=== PATIENT | female | born 1970 | race Caucasian/White ===

== ENCOUNTER → 2020-11-22 11:08 | Outpatient (BNVA) | payer OTHER, SELFPAY | PROVIDERS: Family Provider Obstetrics & Gynecology; PCP Family Medicine; Visit Provider Family Medicine | DX: Z13.6 Encounter for screening for cardiovascular disorders (principal); E04.1 Nontoxic single thyroid nodule; R06.01 Orthopnea | CPT/HCPCS: 80053; 80061; 83880; 84439; 84443; 85025 ==

== ENCOUNTER → 2020-11-24 11:08 | Outpatient (BNVA) | payer OTHER, SELFPAY | PROVIDERS: Family Provider Obstetrics & Gynecology; PCP Family Medicine; Visit Provider Family Medicine | DX: E66.01 Morbid (severe) obesity due to excess calories (principal); Z13.6 Encounter for screening for cardiovascular disorders; E04.1 Nontoxic single thyroid nodule; R06.01 Orthopnea | CPT/HCPCS: 82306 ==

== ENCOUNTER 2020-12-03 10:26 | Outpatient (CLI) | payer OTHER, SELFPAY ==
--- NOTE | 2020-12-03 11:00 | MM_ITS ---
WS: [id number] DIAGNOSTIC BILATERAL DIGITAL MAMMOGRAM WITH CAD Bilateral breast ultrasound, limited HISTORY: Bilateral breast masses. COMPARISON: None available. TECHNIQUE: Bilateral craniocaudad, mediolateral oblique, and mediolateral views are submitted. Spot c ompression bilateral CC and MLO projections. Computer aided detection utilized. Breast composition: There are scattered areas of fibroglandular density. Asymmetries are present in t he upper outer quadrant of each breast. These are slightly irregular in shape with mild distortion. V issac symmetric in appearance. These areas correspond to the palpable markers. There is an additional p alpable marker which does correspond to a lymph node which appears benign in the axillary tail. Ultra sound will be performed of all the palpable areas. Bilateral breast ultrasound, limited. RIGHT breast: 11:00, 3 cm from the nipple no abnormality is identified. At 10:00, 3 cm above the nipp le is a hypoechoic area with shadowing. This area spiculated measuring 1.5 x 1.1 x 1.3 cm. No increas ed vascularity. Benign lymph node RIGHT breast at 11:00. LEFT breast: Very hypoechoic mass in the LEFT breast at 1:00, 4 cm from the nipple. This hypoechoic a leslie measures 0 1.5 x 1.3 x 0.6 cm. There is no through-transmission. There is an additional hypoechoi c lobulated nodule at 1:00, 4 cm from the nipple measuring 0.8 x 0.7 x 0.5 cm. MM/[place] [id number] IMPRESSION: BI-RADS: 4-Suspicious Finding-Biopsy Should Be Considered FOLLOW UP: Biopsy Recommended 1. Ultrasound-guided biopsy recommended of slightly spiculated hypoechoic mass at 10:00, 3 cm from the nipple RIGHT breast. 2. Ultrasound-guided biopsy recommended of 2 LEFT breast mass at 1:00, 4 cm to the nipple. One of these masses is very hypoechoic and may be a cyst or disten ded duct. The second mass is solid. Notified Jessica Penn DO at 12/03/2020 1:15 PM. Message left on answering se rvice.
== END 2020-12-03 10:27 | disposition home or self-care (01) ==
LOC: RADSHAW 10:31
PROVIDERS: PCP Family Medicine; Visit Provider Family Medicine
DX: N63.11 Unspecified lump in the right breast, upper outer quadrant (principal); N63.21 Unspecified lump in the left breast, upper outer quadrant
CPT/HCPCS: 76641; 77066

== ENCOUNTER 2020-12-17 07:09 | Outpatient (CLI) | payer OTHER, SELFPAY ==
--- NOTE | 2020-12-17 07:15 | US_ITS ---
WS: [id number] THYROID ULTRASOUND (TI-RADS CRITERIA) History: Thyroid nodule follow-up. COMPARISON: 05/30/2011. Technique: Ultrasound examination of the thyroid and adjacent soft tissues is performed. FINDINGS: Right lobe: 6.4 cm x 2.9 cm x 3.1 cm. Volume: 29.8 cm3. Markedly enlarged RIGHT thyroid. Very heterogeneous appearance of the gland. There is a dominant nodu le centered in the mid gland. Lymph nodes: Small, normal. NODULE: 1 Size: 3.5 x 3.0 x 3.9 cm. Location: Mid RIGHT Composition: Solid/almost completely solid (2) Echogenicity: Hypoechoic (2) Shape: Not taller than wide (0) Margins: Smooth (0) Echogenic foci: None (0) ACR TI-RADS total points: 4 ACR TI-RADS risk category: TR4 Left lobe: 4.7 cm x 1.2 cm x 1.3 cm. Volume: 4.0 cm3. Heterogeneous gland. No discrete nodules. Lymph nodes: Small normal-appearing. Isthmus: 0.4 cm. US/US thyroid [id number] Impression: TR4 Recommendation:Fine needle aspiration recommended of the large nodule in the RI T thyroid. Nodule which has slightly increased since 2011.
== END 2020-12-17 07:10 | disposition home or self-care (01) ==
LOC: RAD 07:12
PROVIDERS: PCP Family Medicine; Visit Provider Family Medicine
DX: E04.1 Nontoxic single thyroid nodule (principal)
CPT/HCPCS: 76536

== ENCOUNTER 2020-12-24 12:58 | Outpatient (CLI) | payer OTHER, SELFPAY ==
--- NOTE | 2020-12-24 | US_ITS ---
WS: [id number] ULTRASOUND-GUIDED BILATERAL BREAST BIOPSY CLINICAL INFORMATION: spiculated hypoechoic mass at 10:00 COMPARISON: None. FINDINGS: The procedure including risks, benefits, and complications were discussed with the patient who agreed to proceed. Using sterile technique patient was prepped and draped in the usual sterile fashion. Aft er 1% lidocaine utilizing real-time ultrasound guidance 5 14-gauge cores were obtained of the RIGHT b reast lesion at the 10 o'clock position. Subsequently a titanium clip was placed in the biopsy cavity . This is considered lesion A. Next, the LEFT breast lesion was localized at the 1:00 position 4 cm from the nipple. Large cystic ar ea was aspirated and a small amount of fluid was sent for sampling. The solid component was then biop sied and 5 14-gauge cores were obtained. The marker was placed in the biopsy cavity. This is consider ed lesion B. Next, the LEFT breast hypoechoic, more superficial lesion lesion at the 1:00 position was biopsied. 5 14-gauge cores were obtained and biopsy clip was placed. This is considered lesion C. PATHOLOGY DEMONSTRATES A. Breast, right, spiculated mass, BI-RADS 5 , ultrasound-guided biopsy: -Invasive lobular carcinoma. - B. Breast, left, cyst, ultrasound-guided biopsy: -Benign breast tissue with chronic inflammation and cyst contents. -Negative for malignancy. C. Breast, left, solid lesion , biopsy: -Lymphohistiocytic process, consistent with duct ectasia and chronic inflammation. -Negative for malignancy. See separate pathology report for breast cancer prognostic profile US/[id number] IMPRESSION: 1. Uncomplicated ultrasound-guided bilateral breast biopsy. 2. The pathology demonstrates LESION A RIGHT BREAST: INVASIVE LOBULAR CARCINOMA LESION B LEFT BREAST WITH LARGE ASPIRATED CYST: Benign breast tissue chronic in flammation and cystic contents. Negative for malignancy. LESION C SOLID LESION LEFT BREAST: Lymphohistiocytic process with ductal ectasi a and chronic inflammation. No evidence of malignancy. RECOMMEND BREAST SURGERY CONSULTATION FOR INVASIVE LOBULAR CARCINOMA RIGHT TEENA ST BREAST MRI IS RECOMMENDED DUE TO RISK OF CONTRALATERAL AND MULTICENTRIC DISEASE WITH INVASIVE LOBULAR CARCINOMA BI-RADS: 6-Known Biopsy-Proven Malignancy FOLLOW UP: See Report
--- NOTE | 2020-12-24 13:00 | US_ITS ---
WS: [id number] ULTRASOUND-GUIDED BILATERAL BREAST BIOPSY CLINICAL INFORMATION: spiculated hypoechoic mass at 10:00 COMPARISON: None. FINDINGS: The procedure including risks, benefits, and complications were discussed with the patient who agreed to proceed. Using sterile technique patient was prepped and draped in the usual sterile fashion. Aft er 1% lidocaine utilizing real-time ultrasound guidance 5 14-gauge cores were obtained of the RIGHT b reast lesion at the 10 o'clock position. Subsequently a titanium clip was placed in the biopsy cavity . This is considered lesion A. Next, the LEFT breast lesion was localized at the 1:00 position 4 cm from the nipple. Large cystic ar ea was aspirated and a small amount of fluid was sent for sampling. The solid component was then biop sied and 5 14-gauge cores were obtained. The marker was placed in the biopsy cavity. This is consider ed lesion B. Next, the LEFT breast hypoechoic, more superficial lesion lesion at the 1:00 position was biopsied. 5 14-gauge cores were obtained and biopsy clip was placed. This is considered lesion C. PATHOLOGY DEMONSTRATES A. Breast, right, spiculated mass, BI-RADS 5 , ultrasound-guided biopsy: -Invasive lobular carcinoma. - B. Breast, left, cyst, ultrasound-guided biopsy: -Benign breast tissue with chronic inflammation and cyst contents. -Negative for malignancy. C. Breast, left, solid lesion , biopsy: -Lymphohistiocytic process, consistent with duct ectasia and chronic inflammation. -Negative for malignancy. See separate pathology report for breast cancer prognostic profile US/[id number] IMPRESSION: 1. Uncomplicated ultrasound-guided bilateral breast biopsy. 2. The pathology demonstrates LESION A RIGHT BREAST: INVASIVE LOBULAR CARCINOMA LESION B LEFT BREAST WITH LARGE ASPIRATED CYST: Benign breast tissue chronic in flammation and cystic contents. Negative for malignancy. LESION C SOLID LESION LEFT BREAST: Lymphohistiocytic process with ductal ectasi a and chronic inflammation. No evidence of malignancy. RECOMMEND BREAST SURGERY CONSULTATION FOR INVASIVE LOBULAR CARCINOMA RIGHT TEENA ST BREAST MRI IS RECOMMENDED DUE TO RISK OF CONTRALATERAL AND MULTICENTRIC DISEASE WITH INVASIVE LOBULAR CARCINOMA BI-RADS: 6-Known Biopsy-Proven Malignancy FOLLOW UP: See Report
--- NOTE | 2020-12-24 14:30 | US_ITS ---
WS: [id number] ULTRASOUND-GUIDED BILATERAL BREAST BIOPSY CLINICAL INFORMATION: spiculated hypoechoic mass at 10:00 COMPARISON: None. FINDINGS: The procedure including risks, benefits, and complications were discussed with the patient who agreed to proceed. Using sterile technique patient was prepped and draped in the usual sterile fashion. Aft er 1% lidocaine utilizing real-time ultrasound guidance 5 14-gauge cores were obtained of the RIGHT b reast lesion at the 10 o'clock position. Subsequently a titanium clip was placed in the biopsy cavity . This is considered lesion A. Next, the LEFT breast lesion was localized at the 1:00 position 4 cm from the nipple. Large cystic ar ea was aspirated and a small amount of fluid was sent for sampling. The solid component was then biop sied and 5 14-gauge cores were obtained. The marker was placed in the biopsy cavity. This is consider ed lesion B. Next, the LEFT breast hypoechoic, more superficial lesion lesion at the 1:00 position was biopsied. 5 14-gauge cores were obtained and biopsy clip was placed. This is considered lesion C. PATHOLOGY DEMONSTRATES A. Breast, right, spiculated mass, BI-RADS 5 , ultrasound-guided biopsy: -Invasive lobular carcinoma. - B. Breast, left, cyst, ultrasound-guided biopsy: -Benign breast tissue with chronic inflammation and cyst contents. -Negative for malignancy. C. Breast, left, solid lesion , biopsy: -Lymphohistiocytic process, consistent with duct ectasia and chronic inflammation. -Negative for malignancy. See separate pathology report for breast cancer prognostic profile US/[id number] IMPRESSION: 1. Uncomplicated ultrasound-guided bilateral breast biopsy. 2. The pathology demonstrates LESION A RIGHT BREAST: INVASIVE LOBULAR CARCINOMA LESION B LEFT BREAST WITH LARGE ASPIRATED CYST: Benign breast tissue chronic in flammation and cystic contents. Negative for malignancy. LESION C SOLID LESION LEFT BREAST: Lymphohistiocytic process with ductal ectasi a and chronic inflammation. No evidence of malignancy. RECOMMEND BREAST SURGERY CONSULTATION FOR INVASIVE LOBULAR CARCINOMA RIGHT TEENA ST BREAST MRI IS RECOMMENDED DUE TO RISK OF CONTRALATERAL AND MULTICENTRIC DISEASE WITH INVASIVE LOBULAR CARCINOMA BI-RADS: 6-Known Biopsy-Proven Malignancy FOLLOW UP: See Report
[2021-01-04 08:13] LABS: Miscellaneous Test See Scanned Lab Rpt
== END 2020-12-24 12:59 | disposition home or self-care (01) ==
LOC: RAD 13:02
PROVIDERS: PCP Family Medicine; Visit Provider Family Medicine
DX: N63.11 Unspecified lump in the right breast, upper outer quadrant; N63.21 Unspecified lump in the left breast, upper outer quadrant; C50.911 Malignant neoplasm of unspecified site of right female breast; N60.42 Mammary duct ectasia of left breast
CPT/HCPCS: 19000; 19083; 19084; 76942; 88305; 88361; 88367; 88374

== ENCOUNTER 2021-01-05 14:19 | Outpatient (CLI) | payer OTHER, SELFPAY ==
--- NOTE | 2021-01-05 18:01 | ONC CON_ITS ---
Dr. Hernandez New Patient Note Patient: Katalina Garcias Unit #: [id number]: [id number] Dicatated By: Robert Hernandez M.D.Date of Visit: Jan 05, 2021 Onc MED New Patient/Consult Referring Physician: Dr. URIEL PRICE D.O. History of Present Illness: Ms. Katalina Ferreira, is a 50-year-old female with a year long history of right breast mass and recently noted mass in her left breast for which she underwent mammogram on December 03, 2020 which showed at 10:00, 3 cm above the nipple there is hypoechoic area with shadowing this area is spiculated measuring 1.5 x 1.1 x 1.3 cm. No increased vascularity, benign lymph node right breast at 11:00. And left breast shows very hypoechoic mass in the left breast at 1 o'clock position, 4 cm from the nipple. This is appropriate. Mid 1.5 x 1.3 x 0.6 cm with no through transmission. There is additional hypoechoic lobulated nodule at 1 o'clock position, 4 cm from the nipple measuring 0.8 x 0.7 x 0.5 cm. Subsequently patient underwent ultrasound-guided biopsy of right breast spiculated mass and two left breast masses on December 24, 2020 final pathology report came back negative for malignancy in left breast masses whereas right breast mass shows invasive lobular carcinoma, ER/ND strongly positive, E-cadherin, partially positive. Patient denies any nipple discharge, denies any overlying skin changes, denies any axillary lymphadenopathy, denies any new bony pains, denies any family history of breast cancer, denies any hormone supplement except control pill during pregnancies. Patient still having menstrual periods,, denies smoking or alcohol use. Past Medical History: Ms. Garcias's medical history consists of history of Helicobacter pylori and thyroid nodule. Past Surgical History: Ms. Garcias's surgical/procedural history consists of breast biopsy, covid vaccine #2 moderna in 2020, and covid vaccine #1 moderna in 2020. Medications: Acetaminophen 2 Tablet (of 500 mg) Oral q 8 hours PRN, Levocetirizine Dihydrochloride 1 Tablet (of 5 mg) Oral daily, Omeprazole 1 Tablet (of 20 mg) Capsule Delayed Release Oral daily Allergies: Esomeprazole Magnesium and Pseudoephedrine HCl. Social History: Ms. Garcias is . Ms. Garcias no longer smokes. She drinks occasionally. Family History: There is no documented family history. Review Of Symptoms: Review of Systems is not available for this patient. Vital Signs: Performed on Jan 05, 2021 16:29: 2, 0, 51.29 (HIGH), 2.44 sq.m, 66 in, 98 %, 80 /min, 18 /min, 136/84 mm(hg), 97.9 F (LOW), and 317.8 lbs (HIGH). Performance Status: 0 - Fully active, able to carry on all predisease activities without restrictions. (ECOG) Physical Examination: ENMT - No mouth sores, no thrush, no jaundice, No axillary or cervical lymphadenopathy, fullness in right anterior neck consistent with thyroid mass, Respiratory - Lungs are clear to auscultation, Cardiovascular - Regular rate and rhythm of heart, Abdomen - Soft, bowel sounds present, Extremities - No visible edema. Lab/Imaging: Most recent lab results are not available for this patient. Impression: Invasive lobular carcinoma per ultrasound-guided biopsy right breast done on December 24, 2020, ER 90% positive, ND 100% positive HER-2/myra negative left breast biopsy x2 showed no evidence of malignancy Mammogram done on December 03, 2020 showed 1.5 x 1.1 x 1.3 cm mass in the right breast at 10 o'clock position , 3 cm from the nipple, Plan: Discussed with patient regarding her disease status and further Work-up and treatment options, case was also discussed with pathology,, patient is considering breast preservation, patient was advised that invasive lobular carcinoma histology tend to be multicentric and often bilateral, so we would recommend MRI scan of the breast if it shows no additional abnormalities then lumpectomy with sentinel lymph node biopsy can be considered followed by radiation therapy and based on her prognostic profiling, chemotherapy followed by hormonal therapy or hormone therapy alone for 5 years may be considered. Patient is considering bilateral mastectomy with reconstruction if MRI scan of the breast shows abnormalities requiring biopsies. As far as thyroid mass is concerned, patient is scheduled for thyroid biopsy on February 04, 2021 At this point, we will refer her to breast cancer clinic at [facility] for evaluation and MRI scan of the breast, patient return to clinic 1 week after her visit to [facility] for further discussion. Signed By: Robert Hernandez M.D. <<Signature on File>>
== END 2021-01-05 14:20 | disposition home or self-care (01) ==
LOC: ONCMED 14:28
PROVIDERS: PCP Family Medicine; Visit Provider Internal Medicine Hematology & Oncology
DX: C50.411 Malignant neoplasm of upper-outer quadrant of right female breast (principal); Z17.0 Estrogen receptor positive status [ER+]
CPT/HCPCS: 99205

== ENCOUNTER 2021-02-04 08:56 | Outpatient (CLI) | payer OTHER, SELFPAY ==
--- NOTE | 2021-02-04 09:00 | US_ITS ---
WS: [id number] ULTRASOUND GUIDED BIOPSY RIGHT THYROID HISTORY: large nodule in the RIGHT thyroid. Procedure, risks, and complications are explained to the patient. Consent was obtained. Skin is clean sed with ChloraPrep and anesthetized with 1% buffered lidocaine. Large thyroid in the RIGHT gland is targeted for biopsy. Under sterile conditions this nodule is biop sied with 25-gauge needles. 4 fine-needle aspirations were performed. No complications were encounter ed. Cytopathology tech was present to perform the slides. Patient will be observed post procedure for at least 15 minutes for bleeding. US/US guide [id number] IMPRESSION: Uncomplicated RIGHT thyroid biopsy. Final pathology results pending.
== END 2021-02-04 08:57 | disposition home or self-care (01) ==
LOC: RAD 08:58
PROVIDERS: PCP Family Medicine; Visit Provider Family Medicine
DX: E04.1 Nontoxic single thyroid nodule (principal)
CPT/HCPCS: 10005; 88173; 88305

== ENCOUNTER → 2021-03-14 16:00 | Outpatient (BNVA) | payer OTHER, SELFPAY | PROVIDERS: PCP Family Medicine; Visit Provider Family Medicine | DX: Z01.812 Encounter for preprocedural laboratory examination (principal); Z20.822 Contact with and (suspected) exposure to COVID-19 | CPT/HCPCS: 87635 ==

== ENCOUNTER 2021-05-16 08:15 | Outpatient (CLI) | payer OTHER, SELFPAY ==
--- NOTE | 2021-05-16 10:19 | ONC FU_ITS ---
Dr. Hernandez follow up note Patient: Katalina Garcias Unit #: [id number]: [id number] Dicatated By: Robert Hernandez M.D.Date of Visit:May 16, 2021 Onc Med Follow-up/Prog Note History of Present Illness: Ms. Katalina Ferreira, is a 50-year-old female with a year long history of right breast mass and recently noted mass in her left breast for which she underwent mammogram on December 03, 2020 which showed at 10:00, 3 cm above the nipple there is hypoechoic area with shadowing this area is spiculated measuring 1.5 x 1.1 x 1.3 cm. No increased vascularity, benign lymph node right breast at 11:00. And left breast shows very hypoechoic mass in the left breast at 1 o'clock position, 4 cm from the nipple. This is appropriate. Mid 1.5 x 1.3 x 0.6 cm with no through transmission. There is additional hypoechoic lobulated nodule at 1 o'clock position, 4 cm from the nipple measuring 0.8 x 0.7 x 0.5 cm. Subsequently patient underwent ultrasound-guided biopsy of right breast spiculated mass and two left breast masses on December 24, 2020 final pathology report came back negative for malignancy in left breast masses whereas right breast mass shows invasive lobular carcinoma, ER/TN strongly positive, E-cadherin, partially positive. Patient denies any nipple discharge, denies any overlying skin changes, denies any axillary lymphadenopathy, denies any new bony pains, denies any family history of breast cancer, denies any hormone supplement except control pill during pregnancies. Patient still having menstrual periods,, denies smoking or alcohol use. Underwent MRI scan of the breast done on February 07, 2021 which showed 3.3 cm spiculated mass in the upper outer quadrant of right breast, site of invasive lobular carcinoma. No evidence of multifocal malignancy in the right breast. 4 cm area of clumped non-mass enhancement in the upper outer left breast is at low suspicion for malignancy could be chronic inflammation for which Underwent left upper outer quadrant of breast biopsy on February 18, 2021 at [place] which shows no evidence of malignancy or atypia Underwent right lumpectomy with sentinel lymph node on March 17, 2021 at [place], which showed multifocal invasive lobular carcinoma, largest contiguous microscopic focus was 21 mm, T2, 0 out of 2 lymph nodes shows metastatic disease, N0. Patient was seen by medical oncologist at [place] and was recommended to start tamoxifen for 5 years. Came for follow-up, denies any specific complaints, no fever chills, no nausea or vomiting, no diarrhea or constipation, no melena or hematochezia, no new bony pains, tolerated right lumpectomy with sentinel lymph node biopsy well. Patient also underwent left breast biopsy for abnormality seen on MRI scan of the breast and that came back negative for malignancy. Patient is here to discuss about adjuvant hormonal therapy with tamoxifen, as patient still having menses but considering prophylactic bilateral oophorectomy/hysterectomy. Medications: Acetaminophen 2 Tablet (of 500 mg) Oral q 8 hours PRN, Levocetirizine Dihydrochloride 1 Tablet (of 5 mg) Oral daily, Omeprazole 1 Tablet (of 20 mg) Capsule Delayed Release Oral daily Allergies: Esomeprazole Magnesium and Pseudoephedrine HCl. Review of Systems: Review of Systems is not available for this patient. Vital Signs: Performed on May 16, 2021 08:27 Height - 66.00 in Weight - 316.6 lbs (LOW) BSA - 2.43 sq.m BMI - 51.10 (HIGH) Temperature - 97.4 F (LOW) Pulse - 85 /min Respiration - 18 /min BP - 165/93 mm(hg) (HIGH) O2 Sat - 98 % Pain - 0 Fatigue - 2 Performance Status: 0 - Fully active, able to carry on all predisease activities without restrictions. (ECOG) Physical Examination: Respiratory - Lungs are clear to auscultation, Cardiovascular - Regular rate and rhythm of heart, Gastrointestinal - Soft, bowel sounds present, Extremities - No visible edema. Lab/Imaging: Most recent lab results are not available for this patient. Impression: Invasive lobular carcinoma per ultrasound-guided biopsy right breast done on December 24, 2020, ER 90% positive, TN 100% positive HER-2/myra negative, Underwent right lumpectomy with sentinel lymph node on March 17, 2021 at [place], which showed multifocal invasive lobular carcinoma, largest contiguous microscopic focus was 21 mm, T2, 0 out of 2 lymph nodes shows metastatic disease, N0. Started on tamoxifen 20 mg p.o. daily on May 16, 2021 for 5 years Underwent MRI scan of the breast done on February 07, 2021 which showed 3.3 cm spiculated mass in the upper outer quadrant of right breast, site of invasive lobular carcinoma. No evidence of multifocal malignancy in the right breast. 4 cm area of clumped non-mass enhancement in the upper outer left breast is at low suspicion for malignancy could be chronic inflammation for which Underwent left upper outer quadrant of breast biopsy on February 18, 2021 at [place] which shows no evidence of malignancy or atypia left breast biopsy x2 showed no evidence of malignancy Mammogram done on December 03, 2020 showed 1.5 x 1.1 x 1.3 cm mass in the right breast at 10 o'clock position , 3 cm from the nipple, Plan: Discussed with patient regarding her disease status and treatment options, patient has undergone extensive discussion with medical oncologist at [place] and she was offered tamoxifen 20 mg p.o. daily for 5 years, we will give her prescription for that, all the side effect, possible benefits including but not limited, hot flashes, mood swings, fluid retention, weight gain, increased risk of endometrial carcinoma/risk of thromboembolic phenomena. patient is already aware of the side effects and agreed for the treatment, will give a prescription for tamoxifen 20 mg p.o. daily. Patient is also considering prophylactic bilateral oophorectomy/hysterectomy, for which we will refer her to local [facility] for evaluation. We will also refer her to radiation oncology for postlumpectomy radiation therapy. She will return to clinic in 1 month with CBC CMP Signed By: Robert Henrandez M.D. <<Signature on File>>
== END 2021-05-16 08:16 | disposition home or self-care (01) ==
PROVIDERS: PCP Family Medicine; Visit Provider Internal Medicine Hematology & Oncology
DX: C50.911 Malignant neoplasm of unspecified site of right female breast (principal); C50.912 Malignant neoplasm of unspecified site of left female breast; Z79.899 Other long term (current) drug therapy
CPT/HCPCS: 99214

== ENCOUNTER 2021-05-24 07:06 | Outpatient (RCR) | payer OTHER, SELFPAY ==
--- NOTE | 2021-05-23 14:53 | N.ONRAD NP_ITS ---
Radiation Oncology Consultation Patient Name: Katalina Garcias Date of : 1970 Date of Service: 05/23/2021 Attending Physician: Garth Jennings M.D. Katalina Garcias was seen in consultation this afternoon at the request of Ron Hernandez M.D. for consideration of adjuvant breast radiotherapy for the management of a recently diagnosed breast cancer. She was evaluated by her primary care physician for a palpable left breast mass. A diagnostic mammogram (images were independently visualized in synapse) ordered on December revealed bilateral, irregularly shaped asymmetries in the upper outer quadrant of the breasts. Ultrasonography demonstrated a 1.5 cm x 1.1 cm x 1.3 cm spiculated lesion at the 10 o'clock position, 3 cm from the nipple within the right breast, a hypoechoic mass measuring 1.5 cm x 1.3 cm x 0.6 cm at the 1 o'clock position, 4 cm from the nipple and a 0.8 cm x 0.7 cm x 0.5 cm lobulated nodule at the 1 o'clock position, 4 cm from the nipple within the left breast. An ultrasound-guided breast biopsy completed on December 24, 2020 diagnosed an invasive lobular carcinoma from the right biopsy specimen without malignancy identified within the left breast biopsies. The breast cancer profile confirmed estrogen receptor positivity (99%) and progesterone receptor positivity (99%), but negative for HER-2 (ratio 1.4). The Ki???67 was 5%. The patient requested treatment at [facility] in [place], [place]. An MRI of the breasts ordered on February 07, 2021 demonstrated the biopsy-proven malignancy within the upper-outer quadrant of the right breast and a 3 cm x 4 cm x 1.5 cm non-enhancing mass in the upper-outer quadrant of the left breast. An MRI guided core biopsy performed on February 18, 2021 revealed fat necrosis with chronic inflammation without evidence of atypia or malignancy. Beka Fisher M.D. performed a right needle localized partial mastectomy with sentinel lymph node biopsy on March 17, 2021. The pathology report described a multifocal, grade 2, invasive, lobular carcinoma measuring 2.1 cm with a positive inferior surgical margin. A total of two lymph nodes were harvested without harboring metastatic disease. The Oncotype DX Breast Recurrence Score was 14. Tamoxifen has been prescribed. The patient was evaluated for adjuvant right breast radiotherapy. I discussed the patient's AJCC pathological stage IA (T2N0) specific to her breast cancer diagnosis and The National Comprehensive Cancer Network Guidelines for adjuvant radiotherapy. I also reviewed the classic study by NSABP trial comparing mastectomy, lumpectomy, and lumpectomy with radiotherapy and the Early Breast Cancer Trialist Collaborative Group meta-analysis. She is aware that the addition of radiotherapy to lumpectomy provides improvement in local control and overall survival. I will order genetic testing in consideration of the patient???s lobular carcinoma diagnosis and family history of gastric cancer. I anticipate a 3 week course of hypofractionated radiotherapy sequential to a surgical bed boost as per DOUGLAS Guidelines. A computed tomographic radiotherapy planning scan in the treatment position will be acquired to identify the clinical target volumes. The potential toxicities of breast radiotherapy were reviewed. The patient has verbalized understanding would like to proceed as recommended. The patient's medical treatment plan was discussed with Ron Hernandez M.D. Signed by: Dr. Garth Jennings 05/23/2021 2:51:52 PM
[2021-05-23 15:58] LABS: HCG, Serum Qual Negative (Negative)
--- NOTE | 2021-05-24 | CT_ITS ---
Radiation Therapy Planning CT images; total exam DLP: 1135.43 mGy-cm MTDD
== END 2021-05-30 23:59 | disposition home or self-care (01) ==
LOC: ONCMED 07:06
PROVIDERS: PCP Family Medicine; Visit Provider Radiology Radiation Oncology
DX: Z51.0 Encounter for antineoplastic radiation therapy (principal); C50.411 Malignant neoplasm of upper-outer quadrant of right female breast; Z17.0 Estrogen receptor positive status [ER+]; Z79.899 Other long term (current) drug therapy
CPT/HCPCS: 36415; 77280; 77295; 77300; 77332; 77334; 77470; 84703; 99205

== ENCOUNTER 2021-06-30 06:45 | Outpatient (RCR) | payer OTHER, SELFPAY ==
--- NOTE | 2021-06-02 | CT_ITS ---
Radiation Therapy Planning CT images; total exam DLP: 1152.33 mGy-cm MTDD
[2021-06-13 09:24] LABS: Basophils % 0.5 %; Eosinophils # 0.2 10^3/uL (0.0-0.8); Eosinophils % 2.9 %; Hematocrit 39.7 % (37.0-47.0); Hemoglobin 12.5 g/dL (11.5-15.3); Lymphocytes # 1.7 10^3/uL (0.8-4.8); Lymphocytes % 22.1 %; Mean Corpuscular HGB Conc 31.5 g/dL (30.0-36.0); Mean Corpuscular Hemoglobin 26.8 pg (28.0-34.0); Mean Platelet Volume 9.4 fL (7.4-10.4); Monocytes # 0.5 10^3/uL (0.2-0.9); Monocytes % 6.9 %; Neutrophils # 5.27 10^3/uL (1.8-7.7); Nucleated Red Blood Cells % 0 %; Platelet Count 243 10^3/cmm (130-400); Red Blood Count 4.67 10^6/uL (4.1-5.3); Red Cell Distribution Width 14.1 % (12.1-15.1); White Blood Count 7.9 10^3/uL (4.0-10.0)
[2021-06-13 09:38] LABS: Alanine Aminotransferase 7 U/L (0-33); Albumin Level 3.7 g/dL (3.5-5.2); Alkaline Phosphatase 113 IU/L (35-105); Anion Gap 13.2 (5-19); Aspartate Amino Transferase 13 U/L (0-32); Blood Urea Nitrogen 13 mg/dL (6-20); Calcium 8.2 mg/dL (8.5-10.5); Carbon Dioxide 25 mmol/L (22-29); Chloride 105 mmol/L (98-107); Globulin 2.9 g/dL (1.3-4.6); Glomerular Filtration Rate 76.6 mL/min (90-130); Glucose 107 mg/dL (65-115); Osmolality Calculated 289 mOsm/kg (285-295); Potassium 4.2 mmol/L (3.5-5.1); Sodium 139 mmol/L (136-145); Total Bilirubin 0.2 mg/dL (0.15-1.2); Total Protein 6.6 g/dL (6.6-8.7)
--- NOTE | 2021-06-13 09:40 | ONCRAD TMN_ITS ---
Radiation Oncology Weekly Treatment Management Patient: Dieter Greenwood MR#: [id number] : 1970> Attending Physician: Dr. Tray Stockton Date of Service: 06/13/2021 Referring Physician(s) : Robert Hernandez M.D. Diagnosis: C50.411 - Malignant neoplasm of upper-outer quadrant of right female breast, Diagnosed 12/24/2020 (Active) Stage IA, T2, pN0, M0, G2, HER2 Neg, ER Pos, [place] Po Radiotherapy to date: Course: Breast 2021, Treatment Site: Breast Ca, Ref. ID: [id number], Energy: 15X/6X, Dose/Fx (cGy): 266.7, #Fx: 5 / 15, Dose Correction (cGy): 0, Total Dose (cGy): 1,333.3, Start Date: 06/07/2021, End Date: 06/13/2021, Elapsed Days: 6 Reason for visit: The patient is being seen today as part of their regularly scheduled weekly on treatment visits to assess for acute toxicities from radiotherapy. Review of Systems: Performance status is stable. She has mild twinges of discomfort in the breast. No other complaints at all. Vital Signs: Performed on 06/13/2021 8:20 AM BMI - 51.424 kg/m2 (high), Height - 66 in, Weight - 318.6 lbs, Temperature - 97.3 f, Pulse - 82 /min, Respiration - 20 /min, O2 Sat - 99 %, Pain - 2, Fatigue - 4 and BP - 145/ 84 mm(hg)(high/). Physical Exam: Alert, oriented, no distress. No cervical supraclavicular or axillary lymphadenopathy. Lungs clear to auscultation. The breast is essentially normal in appearance. There is no erythema or edema. The lumpectomy incision is well-healed. There is no redness, tenderness, or induration in the tumor bed area. Imaging: Radiation therapy imaging related to accurate target localization (i.e. KV, MV and CBCT) was reviewed. Appropriate changes, if any, were made to ensure treatment accuracy. Plan: Continue hypofractionated radiation per plan. Signed by: Dr. Tray Stockton 06/13/2021 9:39:01 AM
--- NOTE | 2021-06-13 15:12 | ONC FU_ITS ---
Trisha Koenig Progress Note Patient: Katalina Garcias Unit #: [id number]: 1970 Dicatated By: Trisha Koenig N.P.Date of Visit:Jun 13, 2021 Onc MED Follow-up/Prog Note Chief Complaint: Breast cancer History of Present Illness: Ms. Katalina Ferreira, is a 50-year-old female with a year long history of right breast mass and recently noted mass in her left breast for which she underwent mammogram on December 03, 2020 which showed at 10:00, 3 cm above the nipple there is hypoechoic area with shadowing this area is spiculated measuring 1.5 x 1.1 x 1.3 cm. No increased vascularity, benign lymph node right breast at 11:00. And left breast shows very hypoechoic mass in the left breast at 1 o'clock position, 4 cm from the nipple. This is appropriate. Mid 1.5 x 1.3 x 0.6 cm with no through transmission. There is additional hypoechoic lobulated nodule at 1 o'clock position, 4 cm from the nipple measuring 0.8 x 0.7 x 0.5 cm. Subsequently patient underwent ultrasound-guided biopsy of right breast spiculated mass and two left breast masses on December 24, 2020 final pathology report came back negative for malignancy in left breast masses whereas right breast mass shows invasive lobular carcinoma, ER/CT strongly positive, E-cadherin, partially positive. Patient denies any nipple discharge, denies any overlying skin changes, denies any axillary lymphadenopathy, denies any new bony pains, denies any family history of breast cancer, denies any hormone supplement except control pill during pregnancies. Patient still having menstrual periods,, denies smoking or alcohol use. Underwent MRI scan of the breast done on February 07, 2021 which showed 3.3 cm spiculated mass in the upper outer quadrant of right breast, site of invasive lobular carcinoma. No evidence of multifocal malignancy in the right breast. 4 cm area of clumped non-mass enhancement in the upper outer left breast is at low suspicion for malignancy could be chronic inflammation for which Underwent left upper outer quadrant of breast biopsy on February 18, 2021 at [facility] which shows no evidence of malignancy or atypia Underwent right lumpectomy with sentinel lymph node on March 17, 2021 at [facility], which showed multifocal invasive lobular carcinoma, largest contiguous microscopic focus was 21 mm, T2, 0 out of 2 lymph nodes shows metastatic disease, N0. Patient was seen by medical oncologist at [facility] and was recommended to start tamoxifen for 5 years. Patient presents today for for. States she is feeling pretty good. She states her appetite is good. She denies fever, chills, night sweats. She is having some hot flashes since starting tamoxifen but they are tolerable. She denies sinus drainage or sore throat. No shortness of breath, cough, chest pain. No GI or problems. No joint or muscle pain. No headaches or dizziness. She is scheduled to see a gift shop assistant in [place] for possible hysterectomy and bilateral salpingo-oophorectomy. She is tolerating tamoxifen well. Review Of Symptoms: See above. Past Medical History: History of Helicobacter pylori Thyroid nodule Past Surgical History: Breast biopsy Covid vaccine #2 moderna in 2020 Covid vaccine #1 moderna in 2020 Allergies: Esomeprazole Magnesium and Pseudoephedrine HCl. Medications: Acetaminophen 2 Tablet (of 500 mg) Oral q 8 hours PRN Daily Vitamins 1 Tablet Oral daily Ibuprofen Tablet Oral PRN Levocetirizine Dihydrochloride 1 Tablet (of 5 mg) Oral daily Omeprazole 1 Tablet (of 20 mg) Capsule Delayed Release Oral daily Tamoxifen Citrate 1 Tablet (of 20 mg) Oral daily Family History: There is no documented family history. Social History: Ms. Garcias is . Ms. Garcias no longer smokes. She drinks occasionally. Physical Examination: Performed on Jun 13, 2021 11:19: Height - 66.00 in, Weight - 318.0 lbs (LOW), BSA - 2.44 sq.m, BMI - 51.33 (HIGH), Temperature - 97.7 F (LOW), Pulse - 77 /min, Respiration - 18 /min, BP - 140/86 mm(hg), O2 Sat - 99 %, Pain - 2, Fatigue - 4, Performed on Jun 13, 2021 08:20: Height - 66 in, Weight - 318.6 lbs, Temperature - 97.3 F, Pulse - 82 /min, Respiration - 20 /min, BP - 145/84 mm(hg) (HIGH), O2 Sat - 99 %, Pain - 2, Fatigue - 4, and Performed on Jun 13, 2021 08:20: BMI - 51.424 kg/m2 (HIGH). Performance Status: 0 - Fully active, able to carry on all predisease activities without restrictions. (ECOG) Constitutional Alert, cooperative, oriented. Mood and affect appropriate. Appears close to chronological age. Well nourished. Well developed. Head Normocephalic; no scars. Eyes Conjunctivae and sclerae are clear and without icterus. Pupils are reactive and equal. Respiratory Lungs are clear to auscultation without rhonchi or wheezing. Cardiovascular Regular rate and rhythm of heart without murmurs, gallops or rubs. Abdomen Non-tender, non-distended, no masses, ascites or hepatosplenomegaly. Good bowel sounds. No guarding or rebound tenderness. Extremities No visible deformities, no cyanosis, clubbing or edema. Pulses 3+ and equal bilaterally. Musculoskeletal No tenderness or swelling, normal range of motion without obvious weakness. Psychiatric Alert and oriented times three. Coherent speech. Verbalizes understanding of our discussions today. Laboratory: Test performed on Jun 13, 2021 09:01 Sodium 139 mmol/L Potassium 4.2 mmol/L Chloride 105 mmol/L CO2 25 mmol/L Anion Gap 13.2 BUN 13 mg/dL Creatinine 0.8 mg/dL Cr Clearance (Est) 195.8300 mL/min eGFR 76.6 mL/min Glucose 107 mg/dL Osmolality - Calculated 289 mOsm/kg Calcium 8.2 mg/dL Protein, Total 6.6 g/dL Albumin 3.7 g/dL Globulin 2.9 g/dL Bilirubin, Total 0.2 mg/dL ALT (SGPT) 7 U/L AST (SGOT) 13 U/L Alkaline Phosphatase 113 IU/L WBC 7.9 10 3/uL RBC 4.67 10 6/uL HGB 12.5 g/dL HCT 39.7 % MCV 85.0 fl MCH 26.8 pg MCHC 31.5 g/dL RDW 14.1 % Platelet Count 243 10 3/cmm MPV 9.4 fL Neutrophils 5.27 10 3/uL Lymphocytes 1.7 10 3/uL Monocytes 0.5 10 3/uL Eosinophils 0.2 10 3/uL Basophils 0.0 10 3/uL Neutrophil % 67.0 % Lymphocyte % 22.1 % Monocyte % 6.9 % Eosinophil % 2.9 % Basophils % 0.5 % NRBC % 0 % Impression: Invasive lobular carcinoma per ultrasound-guided biopsy right breast done on December 24, 2020, ER 90% positive, CT 100% positive HER-2/myra negative left breast biopsy x2 showed no evidence of malignancy Mammogram done on December 03, 2020 showed 1.5 x 1.1 x 1.3 cm mass in the right breast at 10 o'clock position , 3 cm from the nipple, Plan: Patient presents today for follow-up. She is tolerating tamoxifen 20 mg well. She is considering hysterectomy and bilateral salpingo-oophorectomy. She has an appointment in [place]. She had questions about treatment for menopausal breast cancer. Information and handouts were provided about anastrozole which would be a medication that we would consider if she reached a menopausal state. She she is currently receiving radiation treatment and has approximately 15 treatments left. She will follow-up with surgery concerning hysterectomy and bilateral salpingo-oophorectomy once radiation treatment has been completed. Patient to follow-up with CBC and CMP in 3 months or sooner if indicated. Signed By: Trisha Koenig N.My. <<Signature on File>>
--- NOTE | 2021-06-20 08:33 | ONCRAD TMN_ITS ---
Radiation Oncology Treatment Management Note Patient Name: Katalina Garcias Date of : 1970 Date of Service: 06/20/2021 Attending Physician: Garth Jennings M.D. Laxmi Garcias is a 50 year- old white female recently diagnosed with a pathological IA (T2N0) invasive, lobular carcinoma of the upper-outer quadrant of the right breast. She was evaluated by her primary care physician for a palpable left breast mass. A diagnostic mammogram ordered on December 03, 2020 revealed bilateral, irregularly shaped asymmetries in the upper-outer quadrant of the breasts. Ultrasonography demonstrated a 1.5 cm x 1.1 cm x 1.3 cm spiculated lesion at the 10 o'clock position, 3 cm from the nipple within the right breast, a hypoechoic mass measuring 1.5 cm x 1.3 cm x 0.6 cm at the 1 o'clock position, 4 cm from the nipple and a 0.8 cm x 0.7 cm x 0.5 cm lobulated nodule at the 1 o'clock position, 4 cm from the nipple within the left breast. An ultrasound-guided breast biopsy completed on December 24, 2020 diagnosed an invasive lobular carcinoma from the right biopsy specimen without malignancy identified within the left breast biopsies. The breast cancer profile confirmed estrogen receptor positivity (99%) and progesterone receptor positivity (99%), but negative for HER-2 (ratio 1.4). The Ki???67 was 5%. The patient requested treatment at [facility] in [place], [place]. An MRI of the breasts ordered on February 07, 2021 demonstrated the biopsy-proven malignancy within the upper-outer quadrant of the right breast and a 3 cm x 4 cm x 1.5 cm non-enhancing mass in the upper-outer quadrant of the left breast. An MRI guided core biopsy performed on February 18, 2021 revealed fat necrosis with chronic inflammation without evidence of atypia or malignancy. Beka Fisher M.D. performed a right needle localized partial mastectomy with sentinel lymph node biopsy on March 17, 2021. The pathology report described a multifocal, grade 2, invasive, lobular carcinoma measuring 2.1 cm with a positive inferior surgical margin. A total of two lymph nodes were harvested without harboring metastatic disease. The Oncotype DX Breast Recurrence Score was 14. Tamoxifen has been prescribed. She has received 24.1 Gy of a prescribed 40 Gy delivered with a 3D conformal radiotherapy plan utilizing opposed tangential portal kay with a [id number] treatment technique. An additional 10 Gy in 5 fractions will be administered to the surgical bed at the conclusion of the whole breast treatment as a consequence of the patient's age in accordance to DOUGLAS Guidelines. Upon review of systems, she denied any breast complaints to radiotherapy. On physical examination, the patient weighed 318 lbs. Her temperature was 96.6 ???F and the blood pressure was 117/63 mmHg. Her pulse was 68 bpm and her respiratory rate was 20. There was no erythema within the treatment kay of the right breast. Continue right breast radiotherapy as prescribed. Signed by: Dr. Garth Jennings 06/20/2021 8:32:50 AM
--- NOTE | 2021-06-27 08:41 | ONCRAD TMN_ITS ---
Radiation Oncology Treatment Management Note Patient Name: Katalina Garcias Date of : 1970 Date of Service: 06/27/2021 Attending Physician: Garth Jennings M.D. Laxmi Garcias is a 50 year- old white female recently diagnosed with a pathological IA (T2N0) invasive, lobular carcinoma of the upper-outer quadrant of the right breast. She was evaluated by her primary care physician for a palpable left breast mass. A diagnostic mammogram ordered on December 03, 2020 revealed bilateral, irregularly shaped asymmetries in the upper-outer quadrant of the breasts. Ultrasonography demonstrated a 1.5 cm x 1.1 cm x 1.3 cm spiculated lesion at the 10 o'clock position, 3 cm from the nipple within the right breast, a hypoechoic mass measuring 1.5 cm x 1.3 cm x 0.6 cm at the 1 o'clock position, 4 cm from the nipple and a 0.8 cm x 0.7 cm x 0.5 cm lobulated nodule at the 1 o'clock position, 4 cm from the nipple within the left breast. An ultrasound-guided breast biopsy completed on December 24, 2020 diagnosed an invasive lobular carcinoma from the right biopsy specimen without malignancy identified within the left breast biopsies. The breast cancer profile confirmed estrogen receptor positivity (99%) and progesterone receptor positivity (99%), but negative for HER-2 (ratio 1.4). The Ki???67 was 5%. The patient requested treatment at [facility] in [place], [place]. An MRI of the breasts ordered on February 07, 2021 demonstrated the biopsy-proven malignancy within the upper-outer quadrant of the right breast and a 3 cm x 4 cm x 1.5 cm non-enhancing mass in the upper-outer quadrant of the left breast. An MRI guided core biopsy performed on February 18, 2021 revealed fat necrosis with chronic inflammation without evidence of atypia or malignancy. Beka Fisher M.D. performed a right needle localized partial mastectomy with sentinel lymph node biopsy on March 17, 2021. The pathology report described a multifocal, grade 2, invasive, lobular carcinoma measuring 2.1 cm with a positive inferior surgical margin. A total of two lymph nodes were harvested without harboring metastatic disease. The Oncotype DX Breast Recurrence Score was 14. Tamoxifen has been prescribed. She has received 40 Gy of a prescribed 40 Gy delivered with a 3D conformal radiotherapy plan utilizing opposed tangential portal kay with a [id number] treatment technique. An additional 10 Gy in 5 fractions will be administered to the surgical bed at the conclusion of the whole breast treatment as a consequence of the patient's age in accordance to DOUGLAS Guidelines. Upon review of systems, she denied any breast complaints to radiotherapy. On physical examination, the patient weighed 317 lbs. Her temperature was 97.6 ???F and the blood pressure was 129/70 mmHg. Her pulse was 82 bpm and her respiratory rate was 18. There was no erythema within the treatment kay of the right breast. Continue right breast radiotherapy as planned. Signed by: Dr. Garth Jennings 06/27/2021 8:39:52 AM
== END 2021-06-30 23:59 | disposition home or self-care (01) ==
LOC: ONCMED 06:45
PROVIDERS: Nurse Practitioner Family; Absent Provider Specialist; PCP Family Medicine; Visit Provider Radiology Radiation Oncology
DX: Z51.0 Encounter for antineoplastic radiation therapy (principal); C50.811 Malignant neoplasm of overlapping sites of right female breast; Z17.0 Estrogen receptor positive status [ER+]; Z79.818 Long term (current) use of other agents affecting estrogen receptors and estrogen levels
CPT/HCPCS: 36415; 77307; 77334; 77336; 77387; 77412; 77417; 80053; 85025; 87624; 99214

== ENCOUNTER 2021-07-05 06:44 | Outpatient (RCR) | payer OTHER, SELFPAY ==
--- NOTE | 2021-07-04 08:53 | ONCRAD TMN_ITS ---
Radiation Oncology Treatment Management Note Patient Name: Katalina Garcias Date of : 1970 Date of Service: 07/04/2021 Attending Physician: Garth Jennings M.D. Laxmi Garcias is a 50 year- old white female recently diagnosed with a pathological IA (T2N0) invasive, lobular carcinoma of the upper-outer quadrant of the right breast. She was evaluated by her primary care physician for a palpable left breast mass. A diagnostic mammogram ordered on December 03, 2020 revealed bilateral, irregularly shaped asymmetries in the upper-outer quadrant of the breasts. Ultrasonography demonstrated a 1.5 cm x 1.1 cm x 1.3 cm spiculated lesion at the 10 o'clock position, 3 cm from the nipple within the right breast, a hypoechoic mass measuring 1.5 cm x 1.3 cm x 0.6 cm at the 1 o'clock position, 4 cm from the nipple and a 0.8 cm x 0.7 cm x 0.5 cm lobulated nodule at the 1 o'clock position, 4 cm from the nipple within the left breast. An ultrasound-guided breast biopsy completed on December 24, 2020 diagnosed an invasive lobular carcinoma from the right biopsy specimen without malignancy identified within the left breast biopsies. The breast cancer profile confirmed estrogen receptor positivity (99%) and progesterone receptor positivity (99%), but negative for HER-2 (ratio 1.4). The Ki???67 was 5%. The patient requested treatment at [facility] in [place], [place]. An MRI of the breasts ordered on February 07, 2021 demonstrated the biopsy-proven malignancy within the upper-outer quadrant of the right breast and a 3 cm x 4 cm x 1.5 cm non-enhancing mass in the upper-outer quadrant of the left breast. An MRI guided core biopsy performed on February 18, 2021 revealed fat necrosis with chronic inflammation without evidence of atypia or malignancy. Beka Fisher M.D. performed a right needle localized partial mastectomy with sentinel lymph node biopsy on March 17, 2021. The pathology report described a multifocal, grade 2, invasive, lobular carcinoma measuring 2.1 cm with a positive inferior surgical margin. A total of two lymph nodes were harvested without harboring metastatic disease. The Oncotype DX Breast Recurrence Score was 14. Tamoxifen has been prescribed. She has received 48 Gy of a prescribed 50 Gy delivered with a 3D conformal radiotherapy plan utilizing opposed tangential portal kay with a [id number] treatment technique. Upon review of systems, she denied any breast complaints to radiotherapy. On physical examination, the patient weighed 323 lbs. Her temperature was 96.8 ???F and the blood pressure was 138/70 mmHg. Her pulse was 69 bpm and her respiratory rate was 18. There was no erythema within the treatment kay of the right breast. Continue right breast radiotherapy as prescribed. Signed by: Dr. Garth Jennings 07/04/2021 8:51:07 AM
--- NOTE | 2021-07-05 08:36 | N.ONRD TS_ITS ---
Radiation OncologyTreatment Summary Patient Name: Katalina Garcias Date of : 1970 Date of Service: 07/05/2021 Attending Physician: Garth Jennings M.D. Katalina Garcias has completed adjuvant breast radiotherapy for the management of a pathological IA (T2N0) invasive, lobular carcinoma of the upper-outer quadrant of the right breast. She was evaluated by her primary care physician for a palpable left breast mass. A diagnostic mammogram ordered on December 03, 2020 revealed bilateral, irregularly shaped asymmetries in the upper-outer quadrant of the breasts. Ultrasonography demonstrated a 1.5 cm x 1.1 cm x 1.3 cm spiculated lesion at the 10 o'clock position, 3 cm from the nipple within the right breast, a hypoechoic mass measuring 1.5 cm x 1.3 cm x 0.6 cm at the 1 o'clock position, 4 cm from the nipple and a 0.8 cm x 0.7 cm x 0.5 cm lobulated nodule at the 1 o'clock position, 4 cm from the nipple within the left breast. An ultrasound-guided breast biopsy completed on December 24, 2020 diagnosed an invasive lobular carcinoma from the right biopsy specimen without malignancy identified within the left breast biopsies. The breast cancer profile confirmed estrogen receptor positivity (99%) and progesterone receptor positivity (99%), but negative for HER-2 (ratio 1.4). The Ki???67 was 5%. The patient requested treatment at [facility] in [place], [place]. An MRI of the breasts ordered on February 07, 2021 demonstrated the biopsy-proven malignancy within the upper-outer quadrant of the right breast and a 3 cm x 4 cm x 1.5 cm non-enhancing mass in the upper-outer quadrant of the left breast. An MRI guided core biopsy performed on February 18, 2021 revealed fat necrosis with chronic inflammation without evidence of atypia or malignancy. Beka Fisher M.D. performed a right needle localized partial mastectomy with sentinel lymph node biopsy on March 17, 2021. The pathology report described a multifocal, grade 2, invasive, lobular carcinoma measuring 2.1 cm with a positive inferior surgical margin. A total of two lymph nodes were harvested without harboring metastatic disease. The Oncotype DX Breast Recurrence Score was 14. Tamoxifen has been prescribed. Daily radiotherapy was administered between the dates of June 07, 2021 through July 05, 2021, A prescribed dose of 50 Gy was delivered in 20 fractions encompassing 29 elapsed days. The right breast was treated with a 3-dimensional conformal radiotherapy plan in the supine position applying an opposed tangential portal field design treatment technique. The medial tangential field utilized a 55??? gantry angle with a collimator angle of 0???. An energy of 15 MV was prescribed. The field size measured 5.5 cm x 12.5 cm within the X-direction and 9.1 cm x 8.9 cm within the Y-direction. The SSD measured 85 cm with the field delivering 104 monitor units. Supplemental medial tangential ports with multi-leaf collimation were designed administering 11 monitor units and 8 monitor units. An additional field was incorporated with low energy photons administering 36 monitor units. The lateral tangential field employed a gantry angle of 230??? with a collimator angle of 0???. The field size measured 5.5 cm x 12.5 cm within X-direction and 9.1 cm x 8.8 cm within the Y-direction. The measured SSD was 80.4 cm with the field allocating 144 monitor units. A photon energy of 15 MV was delivered. Auxiliary lateral tangential ports with MLC were designed that apportioned 21 monitor units and 4 monitor units, respectively. The initial kay commenced on June 07, 2021 and continued through June 27, 2021. A prescribed dose of 40 Gy was delivered in 15 fractions over 21 elapsed days. The surgical bed was then treated with a reduced opposed tangential field approach. The medial port utilized a gantry angle 50??? with an associated collimator angle of 0???. The field size measured 5.6 cm x 4.6 cm within the X-direction and 5.7 cm x 4.7 cm within the Y-direction. The measured SSD was 87.3 cm with the port apportioning 68 monitor units. A photon energy of 15 MV was prescribed. The lateral field employed a gantry angle of 220??? with an associated collimator angle 0???. The field size measured 4.6 cm x 5.6 cm within the X-direction and 5.7 cm x 4.7 cm within the Y-direction. The SSD measured 83.4 cm with the field disbursing 100 monitor units. High energy photons were delivered. An additional port was constructed with a gantry angle of 0??? and a collimator angle of 0???. The field measured 5 cm x 4.5 cm within the X-direction and 5.7 cm x 4.7 cm within the Y-direction. The SSD was 93.1 cm with the port allotting 60 monitor units. High energy photons were dispensed. The reduced ports began on June 28 and concluded July 05, 2021. An additional 10 Gy was allocated in 5 fractions over 8 elapsed days. All treatments were performed with the [employer] linear accelerator and an isocentric technique. The dose was calculated by Anisotropic Analytic Algorithm. The plan was normalized to deliver 95% of the prescription dose to 95% of the planning target volume. Signed by: Dr. Garth Jennings 07/05/2021 8:35:05 AM
== END 2021-07-30 23:59 | disposition home or self-care (01) ==
LOC: ONCMED 06:44
PROVIDERS: Absent Provider Specialist; PCP Family Medicine; Visit Provider Radiology Radiation Oncology
DX: Z51.0 Encounter for antineoplastic radiation therapy (principal); C50.811 Malignant neoplasm of overlapping sites of right female breast; Z17.0 Estrogen receptor positive status [ER+]; Z79.899 Other long term (current) drug therapy
CPT/HCPCS: 77336; 77412

== ENCOUNTER 2021-08-12 10:24 | Oncology outpatient (recurring) (ONCR) | payer OTHER, SELFPAY ==
--- NOTE | 2021-08-12 10:46 | ONCRAD EPV_ITS ---
Radiation Oncology Follow-Up Note Patient Name: Katalina Garcias Date of : 1970 Date of Service: 08/12/2021 Attending Physician: Garth Jennings M.D. Katalina Garcias returned to my office this morning for a routinely scheduled post-radiotherapy follow-up appointment. She completed adjuvant right breast radiotherapy in July for the management of a pathological IA (T2N0) invasive, lobular carcinoma of the upper-outer quadrant of the right breast. She was evaluated by her primary care physician for a palpable left breast mass. A diagnostic mammogram ordered on December 03, 2020 revealed bilateral, irregularly shaped asymmetries in the upper-outer quadrant of the breasts. Ultrasonography demonstrated a 1.5 cm x 1.1 cm x 1.3 cm spiculated lesion at the 10 o'clock position, 3 cm from the nipple within the right breast, a hypoechoic mass measuring 1.5 cm x 1.3 cm x 0.6 cm at the 1 o'clock position, 4 cm from the nipple and a 0.8 cm x 0.7 cm x 0.5 cm lobulated nodule at the 1 o'clock position, 4 cm from the nipple within the left breast. An ultrasound-guided breast biopsy completed on December 24, 2020 diagnosed an invasive lobular carcinoma from the right biopsy specimen without malignancy identified within the left breast biopsies. The breast cancer profile confirmed estrogen receptor positivity (99%) and progesterone receptor positivity (99%), but negative for HER-2 (ratio 1.4). The Ki???67 was 5%. The patient requested treatment at [facility] in [place], [place]. An MRI of the breasts ordered on February 07, 2021 demonstrated the biopsy-proven malignancy within the upper-outer quadrant of the right breast and a 3 cm x 4 cm x 1.5 cm non-enhancing mass in the upper-outer quadrant of the left breast. An MRI guided core biopsy performed on February 18, 2021 revealed fat necrosis with chronic inflammation without evidence of atypia or malignancy. Beka Fisher M.D. performed a right needle-localized partial mastectomy with sentinel lymph node biopsy on March 17, 2021. The pathology report described a multifocal, grade 2, invasive, lobular carcinoma measuring 2.1 cm with a positive inferior surgical margin. A total of two lymph nodes were harvested without harboring metastatic disease. The Oncotype DX Breast Recurrence Score was 14. Tamoxifen has been prescribed. Daily radiotherapy was administered between the dates of June 07, 2021 through July 05, 2021, A prescribed dose of 50 Gy was delivered in 20 fractions encompassing 29 elapsed days. On review of systems, she did not report any breast complaints. On physical examination, the patient weighed 318 lbs. Her temperature was 97.5???F and the blood pressure was 122/71 mmHg. The pulse was 89 bpm and her respiratory rate was 18 breaths per minute. Examination of the right breast did not reveal any significant erythema. Subtle hyperpigmentation was noted. In summary, Ms. Garcias returned for a routine post-radiotherapy follow-up. There are no sequelae from treatment. A JP-BSO was performed in July. She will continue follow-up as scheduled with her medical oncologist. Signed by: Garth Jennings 08/12/2021 10:45:27 AM
== END 2021-08-30 23:59 | disposition home or self-care (01) ==
LOC: ONCMED 10:24
PROVIDERS: PCP Family Medicine; Visit Provider Radiology Radiation Oncology
DX: C50.811 Malignant neoplasm of overlapping sites of right female breast (principal); C50.812 Malignant neoplasm of overlapping sites of left female breast; Z17.0 Estrogen receptor positive status [ER+]; Z90.11 Acquired absence of right breast and nipple; Z79.818 Long term (current) use of other agents affecting estrogen receptors and estrogen levels; Z92.3 Personal history of irradiation
CPT/HCPCS: 99024

== ENCOUNTER 2021-11-11 09:30 | Oncology outpatient (recurring) (ONCR) | payer OTHER, SELFPAY ==
[2021-11-09 08:53] LABS: Basophils % 0.5 %; Eosinophils # 0.2 10^3/uL (0.0-0.8); Eosinophils % 3.3 %; Hematocrit 38.9 % (37.0-47.0); Hemoglobin 12.1 g/dL (11.5-15.3); Lymphocytes # 1.5 10^3/uL (0.8-4.8); Lymphocytes % 24.6 %; Mean Corpuscular HGB Conc 31.1 g/dL (30.0-36.0); Mean Corpuscular Hemoglobin 27.1 pg (28.0-34.0); Mean Platelet Volume 9.4 fL (7.4-10.4); Monocytes # 0.6 10^3/uL (0.2-0.9); Monocytes % 9.8 %; Neutrophils # 3.74 10^3/uL (1.8-7.7); Neutrophils % 61.3 %; Nucleated Red Blood Cells % 0 %; Platelet Count 215 10^3/cmm (130-400); Red Blood Count 4.47 10^6/uL (4.1-5.3); Red Cell Distribution Width 13.3 % (12.1-15.1); White Blood Count 6.1 10^3/uL (4.0-10.0)
[2021-11-09 09:25] LABS: Alanine Aminotransferase 8 U/L (0-33); Albumin Level 3.4 g/dL (3.5-5.2); Alkaline Phosphatase 104 IU/L (35-105); Anion Gap 14.1 (5-19); Aspartate Amino Transferase 16 U/L (0-32); Blood Urea Nitrogen 14 mg/dL (6-20); Carbon Dioxide 27 mmol/L (22-29); Chloride 108 mmol/L (98-107); Globulin 2.9 g/dL (1.3-4.6); Glomerular Filtration Rate 88.9 mL/min (90-130); Glucose 111 mg/dL (65-115); Osmolality Calculated 301 mOsm/kg (285-295); Potassium 4.1 mmol/L (3.5-5.1); Sodium 145 mmol/L (136-145); Total Bilirubin 0.2 mg/dL (0.15-1.2); Total Protein 6.3 g/dL (6.6-8.7)
== END 2021-11-30 23:59 | disposition home or self-care (01) ==
PROVIDERS: PCP Family Medicine; Visit Provider Nurse Practitioner Family
DX: Z53.9 Procedure and treatment not carried out, unspecified reason (principal)
CPT/HCPCS: 80053; 85025

== ENCOUNTER 2022-04-06 11:36 | Oncology outpatient (recurring) (ONCR) | payer OTHER, SELFPAY ==
--- NOTE | 2022-04-06 10:59 | MM_ITS ---
WS: [id number] BILATERAL 3D TOMOSYNTHESIS DIGITAL DIAGNOSTIC MAMMOGRAPHY WITH CAD CLINICAL INFORMATION: HX OF BREAST CA HISTORY: RIGHT lumpectomy COMPARISON: December 03, 2020 TECHNIQUE: Bilateral CC, MLO, and ML views. FINDINGS: Scattered fibroglandular densities bilaterally. Postoperative changes lumpectomy upper-outer quadrant with parenchymal scarring. Biopsy marker LEFT breast. Punctate calcifications in this area have incr eased compared to previous and may be related to prior biopsies. Recommend 6 month follow-up LEFT saravanna ast diagnostic mammography with spot magnification views. Biopsy clip RIGHT axilla. Treatment-related changes RIGHT breast. RIGHT breast is otherwise unchanged . MM/[id number] IMPRESSION: BI-RADS: 3-Probably Benign FOLLOW UP: 6 Month Follow-up Recommend 6 month follow-up LEFT breast diagnostic mammography with spot magnif ication views for the increasing calcifications in the area of prior biopsy.
[2022-04-06 12:11] LABS: Basophils % 0.5 %; Eosinophils # 0.2 10^3/uL (0.0-0.8); Eosinophils % 2.4 %; Hematocrit 39.4 % (37.0-47.0); Hemoglobin 12.4 g/dL (11.5-15.3); Lymphocytes % 22.2 %; Mean Corpuscular HGB Conc 31.5 g/dL (30.0-36.0); Mean Corpuscular Hemoglobin 26.4 pg (28.0-34.0); Mean Corpuscular Volume 83.8 fl (81-99); Mean Platelet Volume 9.3 fL (7.4-10.4); Monocytes # 0.7 10^3/uL (0.2-0.9); Monocytes % 8.3 %; Neutrophils % 65.8 %; Nucleated Red Blood Cells % 0 %; Platelet Count 252 10^3/cmm (130-400); Red Cell Distribution Width 13.4 % (12.1-15.1); White Blood Count 8.8 10^3/uL (4.0-10.0)
[2022-04-06 13:11] LABS: 25 Hydroxy Vitamin D 35 ng/mL (30-100); Alanine Aminotransferase 10 U/L (0-33); Albumin Level 3.8 g/dL (3.5-5.2); Alkaline Phosphatase 178 U/L (35-105); Anion Gap 14.6 (5-19); Aspartate Amino Transferase 20 U/L (0-32); Blood Urea Nitrogen 17 mg/dL (6-20); Calcium 9.7 mg/dL (8.5-10.5); Carbon Dioxide 28 mmol/L (22-29); Chloride 104 mmol/L (98-107); Globulin 3.7 g/dL (1.3-4.6); Glomerular Filtration Rate 76.2 mL/min (90-130); Glucose 95 mg/dL (65-115); Osmolality Calculated 295 mOsm/kg (285-295); Potassium 4.6 mmol/L (3.5-5.1); Sodium 142 mmol/L (136-145); Total Bilirubin 0.2 mg/dL (0.15-1.2); Total Protein 7.5 g/dL (6.6-8.7)
[2022-04-06 16:13] LABS: Ferritin 107 ng/mL (15-150); Iron 55 ug/dL (37-145); Percent Saturation 20.1 % (20-50); Total Iron Binding Capacity 273 mcg/dl; Unsaturated Iron Binding 218 ug/dL (112-347); Vitamin B12 663 pg/mL (232-1245)
== END 2022-05-02 23:59 | disposition home or self-care (01) ==
PROVIDERS: Internal Medicine Hematology & Oncology; PCP Family Medicine; Visit Provider Nurse Practitioner Family
DX: C50.811 Malignant neoplasm of overlapping sites of right female breast; Z17.0 Estrogen receptor positive status [ER+]
CPT/HCPCS: 36415; 77062; 80053; 82306; 82607; 82728; 83540; 83550; 85025; G0279

== ENCOUNTER 2022-07-10 09:17 | Oncology outpatient (recurring) (ONCR) | payer OTHER, SELFPAY ==
[2022-07-10 09:46] LABS: Basophils % 0.5 %; Eosinophils # 0.2 10^3/uL (0.0-0.8); Eosinophils % 2.8 %; Hematocrit 38.5 % (37.0-47.0); Hemoglobin 12.1 g/dL (11.5-15.3); Lymphocytes # 1.5 10^3/uL (0.8-4.8); Lymphocytes % 20.2 %; Mean Corpuscular HGB Conc 31.4 g/dL (30.0-36.0); Mean Corpuscular Hemoglobin 25.9 pg (28.0-34.0); Mean Corpuscular Volume 82.4 fl (81-99); Mean Platelet Volume 9.5 fL (7.4-10.4); Monocytes # 0.6 10^3/uL (0.2-0.9); Monocytes % 8.4 %; Neutrophils # 5.13 10^3/uL (1.8-7.7); Neutrophils % 67.7 %; Nucleated Red Blood Cells % 0 %; Platelet Count 254 10^3/cmm (130-400); Red Blood Count 4.67 10^6/uL (4.1-5.3); Red Cell Distribution Width 14.3 % (12.1-15.1); White Blood Count 7.6 10^3/uL (4.0-10.0)
[2022-07-10 10:02] LABS: Alanine Aminotransferase 10 U/L (0-33); Albumin Level 3.6 g/dL (3.5-5.2); Alkaline Phosphatase 149 U/L (35-105); Blood Urea Nitrogen 17 mg/dL (6-20); Calcium 9.3 mg/dL (8.5-10.5); Carbon Dioxide 24 mmol/L (22-29); Chloride 104 mmol/L (98-107); Globulin 3.5 g/dL (1.3-4.6); Glomerular Filtration Rate 76.2 mL/min (90-130); Glucose 96 mg/dL (65-115); Osmolality Calculated 291 mOsm/kg (285-295); Sodium 140 mmol/L (136-145); Total Bilirubin 0.2 mg/dL (0.15-1.2); Total Protein 7.1 g/dL (6.6-8.7)
[2022-07-10 10:04] LABS: Anion Gap 16.2 (5-19); Aspartate Amino Transferase 20 U/L (0-32); Potassium 4.2 mmol/L (3.5-5.1)
== END 2022-07-30 23:59 | disposition home or self-care (01) ==
PROVIDERS: PCP Family Medicine; Visit Provider Internal Medicine Hematology & Oncology
DX: C50.811 Malignant neoplasm of overlapping sites of right female breast (principal); Z17.0 Estrogen receptor positive status [ER+]; C50.812 Malignant neoplasm of overlapping sites of left female breast
CPT/HCPCS: 36415; 80053; 85025

== ENCOUNTER 2022-09-28 13:09 | Outpatient (CLI) | payer OTHER, SELFPAY ==
--- NOTE | 2022-09-28 13:25 | MM_ITS ---
WS: [id number] LEFT 3D TOMOSYNTHESIS DIGITAL MAMMOGRAPHY WITH CAD CLINICAL INFORMATION: Follow up;6MFU HISTORY: Six-month follow-up calcifications. COMPARISON: April 06, 2022 TECHNIQUE: 3 views of the left breast were obtained. FINDINGS: Scattered fibroglandular densities of the left breast. Breast biopsy markers. Previously described pu nctate appear stable compared to the prior examination. Recommend additional six-month follow-up unti l 18 -24 month stability. No new findings. MM/[id number] IMPRESSION: BI-RADS: 3-Probably Benign FOLLOW UP: 6 Month Follow-up Recommend 6 month follow-up LEFT breast diagnostic mammography with spot magnif ication views. (Calcifications originally noted on the April 06, 2022 exam)
== END 2022-09-28 13:10 | disposition home or self-care (01) ==
PROVIDERS: PCP Family Medicine; Visit Provider Internal Medicine Hematology & Oncology
DX: C50.411 Malignant neoplasm of upper-outer quadrant of right female breast (principal); C50.912 Malignant neoplasm of unspecified site of left female breast
CPT/HCPCS: 77061; G0279

== ENCOUNTER 2022-10-23 13:12 | Oncology outpatient (recurring) (ONCR) | payer OTHER, SELFPAY ==
[2022-10-23 13:24] VITALS: BP 142/94; PULSE 96; RESP 18; TEMP 36.7; O2SAT 96
[2022-10-23 13:34] LABS: Basophils % 0.3 %; Eosinophils # 0.2 10^3/uL (0.0-0.8); Eosinophils % 2.6 %; Hematocrit 38.3 % (37.0-47.0); Hemoglobin 12.3 g/dL (11.5-15.3); Lymphocytes % 23.4 %; Mean Corpuscular HGB Conc 32.1 g/dL (30.0-36.0); Mean Corpuscular Hemoglobin 25.6 pg (28.0-34.0); Mean Corpuscular Volume 79.8 fl (81-99); Mean Platelet Volume 9.6 fL (7.4-10.4); Monocytes # 0.7 10^3/uL (0.2-0.9); Monocytes % 8.1 %; Neutrophils # 5.66 10^3/uL (1.8-7.7); Neutrophils % 65.3 %; Nucleated Red Blood Cells % 0 %; Platelet Count 275 10^3/cmm (130-400); Red Cell Distribution Width 13.8 % (12.1-15.1); White Blood Count 8.7 10^3/uL (4.0-10.0)
[2022-10-23 14:13] LABS: Alanine Aminotransferase 7 U/L (0-33); Albumin Level 3.8 g/dL (3.5-5.2); Alkaline Phosphatase 181 U/L (35-105); Anion Gap 14.3 (5-19); Aspartate Amino Transferase 16 U/L (0-32); Blood Urea Nitrogen 15 mg/dL (6-20); Calcium 9.2 mg/dL (8.5-10.5); Carbon Dioxide 24 mmol/L (22-29); Chloride 98 mmol/L (98-107); Globulin 2.8 g/dL (1.3-4.6); Glomerular Filtration Rate 75.9 mL/min (90-130); Glucose 89 mg/dL (65-115); Osmolality Calculated 274 mOsm/kg (285-295); Potassium 4.3 mmol/L (3.5-5.1); Sodium 132 mmol/L (136-145); Total Bilirubin 0.2 mg/dL (0.15-1.2); Total Protein 6.6 g/dL (6.6-8.7)
== END 2022-10-30 23:59 | disposition home or self-care (01) ==
PROVIDERS: PCP Family Medicine; Visit Provider Internal Medicine Hematology & Oncology
DX: C50.811 Malignant neoplasm of overlapping sites of right female breast (principal); C50.812 Malignant neoplasm of overlapping sites of left female breast
CPT/HCPCS: 36415; 80053; 85025

== ENCOUNTER 2024-03-11 07:13 | Outpatient (CLI) | payer SELFPAY ==
[2024-03-11 08:17] LABS: HF Add Manual Diff No
[2024-03-11 08:18] LABS: Basophils # 0.1 10^3/uL (0.0-0.1); Basophils % 0.6 %; Eosinophils # 0.3 10^3/uL (0.0-0.8); Eosinophils % 2.6 %; Hematocrit 40.6 % (36-47); Lymphocytes # 2.1 10^3/uL (0.8-4.8); Lymphocytes % 20.7 %; Mean Corpuscular HGB Conc 31.5 g/dL (30-55); Mean Corpuscular Hemoglobin 25.8 pg (27-33); Mean Corpuscular Volume 81.9 fl (85-98); Mean Platelet Volume 8.9 fL (7.4-10.4); Monocytes # 0.8 10^3/uL (0.2-0.9); Monocytes % 8.1 %; Neutrophils # 6.87 10^3/uL (1.8-7.7); Neutrophils % 67.5 %; Nucleated Red Blood Cells % 0 %; Platelet Count 263 10^3/cmm (157-399); Red Blood Count 4.96 10^6/uL (3.85-5.65); Red Cell Distribution Width 14.2 % (12.1-15.1); White Blood Count 10.16 10^3/uL (3.29-11.43)
[2024-03-11 08:40] LABS: Estmated Average Glucose 91; Hemoglobin A1C 4.8 % (4.0-6.0)
[2024-03-11 09:06] LABS: 25 Hydroxy Vitamin D 38 ng/mL (30-100); Alanine Aminotransferase 9 U/L (0-33); Albumin Level 3.9 g/dL (3.5-5.2); Alkaline Phosphatase 190 U/L (35-105); Anion Gap 16.2 (5-19); Aspartate Amino Transferase 18 U/L (0-32); Blood Urea Nitrogen 19 mg/dL (6-20); Calcium 9.8 mg/dL (8.5-10.5); Carbon Dioxide 25 mmol/L (22-29); Chloride 102 mmol/L (98-107); Chol HDL Ratio 4.11 mg/dL (0.0-4.40); Cholesterol 193 mg/dL (0-200); Globulin 3.7 g/dL (1.3-4.6); Glomerular Filtration Rate 88.2 mL/min (90-130); Glucose 111 mg/dL (65-115); HDL Cholesterol 47 mg/dL (60-100); LDL Cholesterol Calculated 114 mg/dL (50-129); LDL HDL Ratio 2.43 RATIO (0.00-3.22); Osmolality Calculated 291 mOsm/kg (285-295); Potassium 4.2 mmol/L (3.5-5.1); Sodium 139 mmol/L (136-145); Thyroid Stimulating Hormone 0.01 uIU/mL (0.27-4.20); Total Bilirubin 0.3 mg/dL (0.15-1.2); Total Protein 7.6 g/dL (6.6-8.7); Triglycerides 159 mg/dL (0-150)
== END 2024-03-11 07:14 | disposition home or self-care (01) ==
LOC: LAB 07:15
PROVIDERS: Visit Provider Dermatology
DX: Z01.89 Encounter for other specified special examinations (principal)
CPT/HCPCS: 36415

== ENCOUNTER 2024-12-11 07:20 | Outpatient (CLI) | payer SELFPAY ==
[2024-12-11 08:55] LABS: HF Add Manual Diff No
[2024-12-11 09:01] LABS: Hematocrit 39.6 % (36-47); Hemoglobin 12.70 g/dL (11.27-16.99); Mean Corpuscular HGB Conc 32.1 g/dL (30-55); Mean Corpuscular Hemoglobin 26.1 pg (27-33); Mean Corpuscular Volume 81.5 fl (85-98); Nucleated Red Blood Cells % 0 %; Platelet Count 235 10^3/cmm (157-399); Red Blood Count 4.86 10^6/uL (3.85-5.65); White Blood Count 8.08 10^3/uL (3.29-11.43)
[2024-12-11 09:25] LABS: Estmated Average Glucose 108; Hemoglobin A1C 5.4 % (4.0-6.0)
[2024-12-11 09:49] LABS: Alanine Aminotransferase 9 U/L (0-33); Albumin Level 3.8 g/dL (3.5-5.2); Alkaline Phosphatase 173 U/L (35-105); Anion Gap 13.3 (5-19); Aspartate Amino Transferase 18 U/L (0-32); Blood Urea Nitrogen 19 mg/dL (6-20); Calcium 9.4 mg/dL (8.5-10.5); Carbon Dioxide 28 mmol/L (22-29); Chloride 106 mmol/L (98-107); Cholesterol 166 mg/dL (0-200); Globulin 3.4 g/dL (1.3-4.6); Glucose 96 mg/dL (65-115); HDL Cholesterol 39 mg/dL (60-100); Osmolality Calculated 298 mOsm/kg (285-295); Potassium 4.3 mmol/L (3.5-5.1); Sodium 143 mmol/L (136-145); Thyroid Stimulating Hormone 0.01 uIU/mL (0.27-4.20); Total Protein 7.2 g/dL (6.6-8.7); Triglycerides 183 mg/dL (0-150)
== END 2024-12-11 07:21 | disposition home or self-care (01) ==
LOC: LAB 07:21
PROVIDERS: Visit Provider Dermatology
DX: Z01.89 Encounter for other specified special examinations (principal)